=== PATIENT | female | born 1950 | race Caucasian/White ===

== ENCOUNTER 2018-11-25 21:13 | Observation (INO) | payer OTHER ==
--- NOTE | 2018-11-25 22:23 | EDM.PDOC ---
ED HPI GENERAL MEDICAL PROBLEM - General Chief Complaint: Gastrointestinal Problem Stated Complaint: STEAK STUCK IN THROAT Time Seen by Provider: 11/25/18 22:30 Source of Information: Reports: Patient History Limitations: Reports: No Limitations - History of Present Illness INITIAL COMMENTS - FREE TEXT/NARRATIVE: 68-year-old female with chronic eosinophilic esophagitis, recurring esophageal foreign bodies presents with steak stuck in her distal esophagus for the last 5 hours. Some chest discomfort but no shortness of breath. Unable to swallow any liquids. Onset: Sudden Duration: Hour(s): (5 hours ago) Associated Symptoms: Reports: No Other Symptoms - Related Data Allergies Allergy/AdvReac Type Severity Reaction Status Date / Time No Known Allergies Allergy Verified 11/25/18 23:15 Home Meds: Home Meds Aspirin 1 tab PO DAILY 11/25/18 [History] Hydroxyurea 1 tab PO ASDIRECTED 11/25/18 [History] Hydroxyurea [Siklos] 1 tab PO ASDIRECTED 11/25/18 [History] Lisinopril 1 tab PO DAILY 11/25/18 [History] Omeprazole 1 tab PO BID 11/25/18 [History] atorvaSTATin [Lipitor] 30 mg PO DAILY 11/25/18 [History] ED ROS GENERAL - Review of Systems Review Of Systems: See Below Constitutional: Denies: Fever, Chills HEENT: Reports: No Symptoms Respiratory: Denies: Shortness of Breath Cardiovascular: Reports: Chest Pain (A little bit of pain substernally from the discomfort) : Reports: No Symptoms Skin: Reports: No Symptoms Neurological: Reports: No Symptoms ED EXAM, GI/ABD - Physical Exam Exam: See Below Exam Limited By: No Limitations General Appearance: Alert, No Apparent Distress (looks fairly uncomfortable but not distressed) Eyes: Bilateral: Normal Appearance (No jaundice) Respiratory/Chest: No Respiratory Distress GI/Abdominal Exam: Normal Bowel Sounds, Soft Neurological: Alert, Oriented Skin Exam: Warm, Dry Course - Vital Signs Last Recorded V/S: Last Vital Signs Temp 98.3 F 11/26/18 00:07 Pulse 86 11/26/18 00:07 Resp 19 11/26/18 00:07 BP 143/97 H 11/26/18 00:07 Pulse Ox 96 11/26/18 00:07 - Orders/Labs/Meds Orders: Medication Orders Hydromorphone HCl (Dilaudid) 0.5 mg IVPUSH Q2H PRN PRN Reason: Pain Dextrose/Lactated Ringer's (Dextrose 5%-Lactated Ringers) 1,000 mls @ 150 mls/ hr IV ASDIRECTED [place] Last Admin: 11/25/18 23:21 Dose: 150 mls/hr Lorazepam (Ativan) 0.5 mg IVPUSH Q2H PRN PRN Reason: Anxiety Last Admin: 11/26/18 00:12 Dose: 0.5 mg Meds: Medications Generic Name Dose Route Start Last Admin Trade Name Freq PRN Reason Stop Dose Admin Hydromorphone HCl 0.5 mg 11/25/18 23:05 Dilaudid IVPUSH Q2H PRN Pain Dextrose/Lactated Ringer's 1,000 mls @ 150 mls/hr 11/25/18 23:15 11/25/18 23: 21 Dextrose 5%-Lactated Ringers IV 150 mls/hr ASDIRECTED [place] Administration Lorazepam 0.5 mg 11/25/18 23:04 11/26/18 00:12 Ativan IVPUSH 0.5 mg Q2H PRN Administration Anxiety Discontinued Medications Generic Name Dose Route Start Last Admin Trade Name Freq PRN Reason Stop Dose Admin Pantoprazole Sodium 40 mg 11/26/18 00:01 Protonix Iv IVPUSH 11/26/18 00:02 ONETIME ONE - Re-Assessments/Exams Free Text/Narrative Re-Assessment/Exam: 11/25/18 22:45 After discussing her symptoms and presentation with Dr. Quinn, she'll be admitted overnight for hydration, symptom control, and an EGD at 7:30 AM. Departure - Departure Time of Disposition: 00:02 Disposition: Admitted As Inpatient 66 Clinical Impression: Esophageal foreign body Qualifiers: Encounter type: initial encounter Qualified Code(s): T18.108A - Unspecified foreign body in esophagus causing other injury, initial encounter - Discharge Information
[2018-11-25] MEDS ORDERED: LORazepam 2 MG/ML SDV IVPUSH PRN (23:04)
[2018-11-25] MEDS ORDERED: HYDROmorphone 0.5 MG/0.5 ML Syringe IVPUSH PRN (23:05)
[2018-11-25] MEDS: Dextrose 5%-Lactated Ringers 1,000 ML IV SCH (23:21)
[2018-11-26] MEDS ORDERED: Pantoprazole 40 MG Vial IVPUSH ONE (00:01)
[2018-11-26] MEDS ORDERED: Ondansetron 4 MG/2 ML SDV IVPUSH PRN (02:35)
[2018-11-26] MEDS: Dextrose 5%-Lactated Ringers 1,000 ML IV SCH (05:26)
[2018-11-26] MEDS ORDERED: Propofol 200 MG/20 ML SDV ONE (07:14)
[2018-11-26] MEDS ORDERED: fentaNYL 100 MCG/2 ML SDV ONE (07:14)
[2018-11-26] MEDS ORDERED: Midazolam 1 MG/ML 2 ML SDV ONE (07:14)
--- NOTE | 2018-11-26 13:12 | DISCH ---
FINAL DIAGNOSIS: Impacted food bolus in the distal esophagus (spontaneously cleared). OPERATIVE PROCEDURES: None. ADDITIONAL DIAGNOSIS: Eosinophilic esophagitis. SUMMARY: This is a 68-year-old [place], who was eating some steak at her friend's cabin, during which time some steak getting lodged in the area of the distal esophagus. This has happened before. The patient does have history of eosinophilic esophagitis, being followed by Gastroenterology in the [facility] area. Earlier this morning, the patient felt that the steak had passed. We initially gave her a glass of water, which she took without difficulty and then she was given a full liquid breakfast, which she likewise had with no difficulty. She will be discharged home to continue her usual medications and she intends to follow up with her industry analyst in the near future.
== END 2018-11-26 09:27 | disposition home or self-care (01) ==
LOC: JP.ED 21:13 → JP.MS 23:00
PROVIDERS: ADMIT Surgery; ATTEND Surgery
DX: T18.128A Food in esophagus causing other injury, initial encounter (principal); K20.0 Eosinophilic esophagitis; Z79.82 Long term (current) use of aspirin; Z79.899 Other long term (current) drug therapy
CPT/HCPCS: 96361; 96374; 96375; 99284; C9113; G0378; J2060; J2405; J7042; J2250; J2704; J3010